=== PATIENT | male | born 1955 | race Caucasian/White ===

== ENCOUNTER 2023-02-04 09:48 | Outpatient (CLI) | payer MEDICARE, BC, SELFPAY | END 2023-02-04 09:49 | disposition home or self-care (01) | PROVIDERS: PCP Family Medicine; Visit Provider Family Medicine | DX: I10 Essential (primary) hypertension (principal); E78.5 Hyperlipidemia, unspecified; Z12.5 Encounter for screening for malignant neoplasm of prostate; Z13.0 Encounter for screening for diseases of the blood and blood-forming organs and certain disorders involving the immune mechanism | CPT/HCPCS: 80048; 80061; 84153 ==

== ENCOUNTER 2024-03-23 08:26 | Outpatient (CLI) | payer MEDICARE, BC, SELFPAY | END 2024-03-23 08:27 | disposition home or self-care (01) | PROVIDERS: PCP Family Medicine; Visit Provider Family Medicine | DX: I10 Essential (primary) hypertension (principal); E78.5 Hyperlipidemia, unspecified; R35.1 Nocturia; R05.9 Cough, unspecified; Z12.5 Encounter for screening for malignant neoplasm of prostate | CPT/HCPCS: 80048; 80061; G0103 ==

== ENCOUNTER 2025-04-24 09:54 | Outpatient (CLI) | payer MEDICARE, BC, SELFPAY | END 2025-04-24 09:55 | disposition home or self-care (01) | PROVIDERS: PCP Family Medicine; Visit Provider Family Medicine | DX: Z12.5 Encounter for screening for malignant neoplasm of prostate (principal); I10 Essential (primary) hypertension; R53.83 Other fatigue; E78.00 Pure hypercholesterolemia, unspecified; Z13.21 Encounter for screening for nutritional disorder | CPT/HCPCS: 80048; 80061; 82607; 84443; G0103 ==

== ENCOUNTER 2025-07-01 21:46 | Emergency (ER) | payer MEDICARE, BC, SELFPAY ==
--- OUTSIDE RECORDS SUMMARY | 2025-07-01 21:48 | XMS_ITS | Clinical Summary ---
Author Organization [employer] [facility] Address [address] [place] [id number] Care Team Providers Care Tax Lawyer Name Role Phone Clinic, No Pcp Or Primary Care Provider Unavaila ble Allergies No known active allergies Medications albuterol HFA (PRO-AIR; VENTOLIN; PROVENTIL) 90 mcg/actuation inhaler 02/04/2023 Active atorvastatin (LIPITOR) 40 mg tablet 03/16/2023 Active chlorthalidone (HYGROTON) 25 mg tablet 03/16/2023 Active Social History Tobacco Use Types Packs/Day Years Used Date Smoking Tobacco: Never Assessed Sex and Gender Information Value Date Recorded Sex Assigned at Not on file 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 Gender Identity Not on file Sexual Orientation Not on file Plan of Treatment Upcoming Encounters Date Type Department Care Team (Late st Contact Info) Description 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 Orders Only [facility] & [address] [address] Health Maintenance Due Date Last Done Comments Tetanus booster 1964 Depression screening for age 12+ 1965 BMI (ht and wt on same day) for age 18+ 1971 Hepatitis C screening for age 18-79 1971 Colonoscopy through age 75 1998 Lipids for age 45-75 1998 Pneumococcal series for age 50+ (1 of 1 - PCV) 2003 Zoster (shingles) series for age 50+ (1 of 2) 2003 Medicare Wellness for age 65+ 2018 COVID-19 vaccine series (2024- season) 2025 07/29/2023, 04/08/2023, 03/20/2022, Additional history exists Influenza Vaccine (#1) 2025 RSV vaccine for adults or (1 - 1-dose 75+ series) 2028 Hepatitis B series for 19+ Aged Out N o longer eligible based on patient's age to complete this topic Insurance [facility] EMP MEDICARE PB ONLY MEDICARE PART B HB ONLY MEDICARE PART A HB ONLY Care Teams Tax Lawyer Relationship Specialty Start Date End Date Clinic, No Pcp Or . PCP - General 02/15/21
[2025-07-01 21:50] VITALS: BP 142/113; PULSE 170; RESP 24; TEMP 36.1; O2SAT 92; BMI 27.9
--- NOTE | 2025-07-01 22:16 | ED.CHESTPAIN ---
HPI - Chest Pain General Chief Complaint: Chest Pain Stated Complaint: chest pain Time Seen by Provider: 07/01/25 21:54 History of Present Illness HPI narrative: This 70-year-old male comes in with chest pain and palpitations or rapid heart rate. He states symptoms began about an hour prior to arrival. He does not report any nausea, vomiting, or diaphoresis. He does have some associated lightheadedness and shortness of breath. He states that he has been having shortness of breath over the past few months since having at upper respiratory infection. He did go to his primary physician who is thinking that it was related to his lungs. He did have an EKG and is set up for a treadmill stress test to occur next week. The patient comes in here with these new symptoms. He arrives showing some sign of significant discomfort that he attributes to chest pain. He is not diaphoretic. Initial assessment shows tachycardia likely due to atrial fibrillation. Related Data Home Medications ?Medication ?Instructions ?Recorded ?Confirmed B-complex with vitamin C 1 cap PO QDAY 06/03/22 06/14/25 calcium 600 mg (as 1 tab PO DAILY 06/03/22 06/14/25 carbonate)-vitamin D3 20 mcg (800 unit) tablet cholecalciferol (vitamin D3) 25 1,000 unit PO DAILY 06/03/22 06/14/25 mcg (1,000 unit) capsule multivitamin 1 tab PO QDAY 06/03/22 06/14/25 omega 6-sdc-xci-fish oil 1,000 mg 1 cap PO QDAY 06/03/22 06/14/25 (120 mg-180 mg) capsule (Fish Oil) aspirin 81 mg tablet,delayed 81 mg PO QDAY 06/04/22 06/14/25 release Previous Rx's ?Medication ?Instructions ?Recorded atorvastatin 40 mg tablet 40 mg PO QPM #90 tabs 04/05/25 chlorthalidone 25 mg tablet 12.5 mg (1/2 x 25 mg) PO DAILY #45 04/05/25 tabs albuterol sulfate 90 mcg/actuation 2 puff inhalation Q6H PRN 04/10/25 aerosol inhaler shortness of breath or wheezing #8.5 grams Allergies Allergy/AdvReac Type Severity Reaction Status Date / Time No Known Drug Allergies Allergy Verified 06/14/25 14:28 Review of Systems Status of ROS Reports: 10 or more systems reviewed and unremarkable except as noted in History and below Narrative Constitutional: No fevers, no weight gain or loss. Eyes: No discharge. No vision changes. HENT: No congestion, no sore throat, no ear pain. Cardiovascular: Chest discomfort with rapid heart rate. Respiratory: No wheezes, no cough. He reports shortness of breath. Gastrointestinal: No abdominal pain, no vomiting, no diarrhea. Genitourinary: No dysuria, no hematuria. Musculoskeletal: Normal range of motion. Skin: No rashes, no pruritis. Neurological: No dizziness, weakness, sensory change, speech change. Endo/Heme/Allergies: No bruising or bleeding. No polydipsia. Pysch: no suicidality, no anxiety, no insomnia. All other systems reviewed and are negative. 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) ?Z96.641 - Presence of right artificial hip joint (ICD-10) Status post vasectomy ?Z98.52 - Vasectomy status (ICD-10) Status post tonsillectomy and adenoidectomy ?Z90.89 - Acquired absence of other organs (ICD-10) Status post left hip replacement ?Z96.642 - Presence of left artificial hip joint (ICD-10) Status post inguinal hernia repair ?Z98.890 - Other specified postprocedural states (ICD-10) ?Z87.19 - Personal history of other diseases of the digestive system (ICD-10) Social History What is your current living situation?: I presently have a place to live Problems where you live: no known problems In the past 12 months, utilities in danger of being shut off: no In past 12 months, lack of transportation kept you from medical appts, meetings, work, or getting things needed for daily living: no In the past 12 mos, have been you worried that your food would run out before you had money to buy more?: never true In the past 12 mos, the food you bought just didn't last and you didn't have money to buy more?: never true Smoking Status: Never smoker Do you use any of these nicotine containing products: None How often do you have a drink containing alcohol: monthly or less AUDIT-C Alcohol total score: 1 Non-prescribed substance use: denies use How often does anyone, including family, friends and others, physically hurt you: never How often does anyone, including family, friends and others, insult or talk down to you: never How often does anyone, including family, friends and others, threaten you with harm: never How often does anyone, including family, friends and others, scream or curse at you: never Exam Narrative Exam Narrative: Constitutional: Well-developed, well-nourished, no acute distress. HEENT: Normocephalic, atraumatic. Neck: Normal range of motion. Nontender. Supple. Heart: Irregular No murmurs. Tachycardia, rate 140-180 beats per minute. Intact distal pulses. Lungs: Clear to auscultation. No chest discomfort. No wheezes, rhonchi, or rales. Abdomen: Normal bowel sounds. Nontender. No rebound tenderness. Genitalia: Deferred. Back: No midline tenderness. Normal range of motion. Extremities: Normal range of motion. No injury. Skin: Intact. No rash. Warm. No erythema or pallor. Neurologic: No altered sensation. No weakness. Alert and oriented. Psychiatric: No suicidality. No anxiety or depression. No insomnia. Nursing notes and vitals signs are reviewed. Const Vital Signs, click to edit/add: Vital Signs - 24 hr 07/01/25 21:50 07/02/25 00:56 07/02/25 00:57 Temperature 97 F L Pulse Rate 108 H 123 H Pulse Rate [Pulse Oximeter] 170 H Respiratory Rate 24 20 24 Blood Pressure 123/71 99/63 Blood Pressure [Right Upper Arm] 142/113 H Pulse Oximetry 92 98 99 Oxygen Delivery Method Room Air Oxygen Flow Rate 07/02/25 01:00 07/02/25 01:00 07/02/25 01:01 Temperature Pulse Rate 86 86 77 Pulse Rate [Pulse Oximeter] Respiratory Rate 21 20 22 Blood Pressure 96/65 96/65 113/70 Blood Pressure [Right Upper Arm] Pulse Oximetry 93 93 97 Oxygen Delivery Method Oxygen Flow Rate 07/02/25 01:01 07/02/25 01:05 07/02/25 01:06 Temperature Pulse Rate 77 82 81 Pulse Rate [Pulse Oximeter] Respiratory Rate 21 20 19 Blood Pressure 113/70 99/63 101/60 Blood Pressure [Right Upper Arm] Pulse Oximetry 97 97 97 Oxygen Delivery Method Oxygen Flow Rate 07/02/25 01:15 Temperature 97.9 F Pulse Rate Pulse Rate [Pulse Oximeter] Respiratory Rate Blood Pressure Blood Pressure [Right Upper Arm] Pulse Oximetry 97 Oxygen Delivery Method Nasal Cannula Oxygen Flow Rate 2 Course Vital Signs Vital signs: Initial Vital Signs Temperature 97 F L 07/01/25 21:50 Temperature Source Temporal Artery Scan 07/01/25 21:50 Pulse Rate 170 H 07/01/25 21:50 Respiratory Rate 24 07/01/25 21:50 Blood Pressure 142/113 H 07/01/25 21:50 Blood Pressure Mean 122 H 07/01/25 21:50 Blood Pressure Position Semi-Fowlers 07/01/25 21:50 Pulse Oximetry 92 07/01/25 21:50 Oxygen Delivery Method Room Air 07/01/25 21:50 Vital Signs Temperature 97 F L 07/01/25 21:50 Pulse Rate 170 H 07/01/25 21:50 Respiratory Rate 24 07/01/25 21:50 Blood Pressure 142/113 H 07/01/25 21:50 Pulse Oximetry 92 07/01/25 21:50 Oxygen Delivery Method Room Air 07/01/25 21:50 Temperature 97.9 F 07/02/25 01:15 Pulse Rate 81 07/02/25 01:06 Respiratory Rate 19 07/02/25 01:06 Blood Pressure 101/60 07/02/25 01:06 Pulse Oximetry 97 07/02/25 01:15 Oxygen Delivery Method Nasal Cannula 07/02/25 01:15 Oxygen Flow Rate 2 07/02/25 01:15 Medications Administered Medications: Discontinued Medications Generic Name Dose Route Start Last Admin Trade Name Freq PRN Reason Stop Dose Admin Apixaban 10 mg 07/01/25 22:15 07/02/25 00:03 Apixaban 5 Mg Tablet PO 07/01/25 22:16 10 mg ONCE ONE Administration Diltiazem HCl 20 mg 07/01/25 22:15 07/01/25 23:22 Diltiazem 5 Mg/Ml Inj IVP 07/01/25 22:16 20 mg ONCE ONE Administration Sodium Chloride 1,000 mls @ 1,000 mls/hr 07/01/25 22:15 07/01/25 23:36 0.9 % Sodium Chloride 1000 Ml IV 07/01/25 23:14 Infused .Q1H [place] Infusion Sodium Chloride 500 mls @ 500 mls/hr 07/01/25 23:29 07/01/25 23:36 0.9 % Sodium Chloride 500 Ml IV 07/02/25 00:28 500 mls/hr .Q1H ONE Administration Propofol 200 mg 07/01/25 23:24 07/02/25 01:16 Propofol 10 Mg/Ml Inj IVP 07/01/25 23:25 70 mg ONCE ONE Administration MDM - Chest Pain MDM Narrative Medical decision making narrative: This patient comes in in rapid atrial fibrillation with new onset occurring about an hour prior to arrival. The an IV was established where he received 20 mg of diltiazem and this brought control the rate but he continues in atrial fibrillation. He is otherwise asymptomatic. Labs are acquired and these returned with reassuring results. In particular his troponin returns in normal range. I did discuss options going forward including synchronized cardioversion. The patient was explained the risks and the benefits of this procedure and agrees to have this done. Dr. Dowd assisted in this procedure. Informed consent was acquired. The patient received 70 mg of propofol administered by Dr. Dowd for adequate sedation. Synchronized cardioversion was performed at 150 joules of energy and this brought him back to normal sinus rhythm. He tolerated this procedure well. He did benefit from some jaw thrust and nasal cannula oxygen. He recovered normally and awoke without report of any symptoms. I did prescribe a course of Eliquis for the next month. This patient has a follow-up plan for a stress echocardiogram in 3 days and should be able to continue with that plan. Lab Data Labs: Lab Results 07/01/25 Range/Units 00:40 WBC 8.93 (4.50-11.00) K/uL RBC 4.91 (4.30-5.90) m/uL Hgb 15.1 (13.5-17.5) gm/dL Hct 42.4 (37.0-53.0) % MCV 86 (80-100) fL MCH 31 (26-34) pg MCHC 36 (32-36) gm/dL RDW Coeff of Leora 11.9 (11.5-15.5) % Plt Count 216 (140-440) K/uL Neut % (Auto) 72.4 H (42.0-72.0) % Lymph % (Auto) 18.5 L (20-44) % [place] % (Auto) 7.6 (0.0-11.0) % Eos % (Auto) 1.0 (0.0-7.0) % Baso % (Auto) 0.4 (0.0-3.0) % Neut # (Auto) 6.50 (1.7-7.0) K/uL Lymph # (Auto) 1.70 (0.90-2.90) K/uL [place] # (Auto) 0.70 (0.00-0.90) K/UL Eos # (Auto) 0.09 (0.00-0.50) K/uL Baso # (Auto) 0.04 (0.00-0.30) K/uL Abs Immat Gran (auto) 0.01 (0.00-0.30) K/uL Imm/Tot Granulo (auto) 0.1 % Sodium 136 (135-149) mmol/L Potassium 2.8 L* (3.6-5.1) mmol/L Chloride 102 (96-114) mmol/L Carbon Dioxide 26 (20-32) mmol/L Anion Gap 8 (7-15) mEq/L BUN 26 (7-30) mg/dL Creatinine 1.1 (0.5-1.5) mg/dL Estimated Creat Clear 64.65 Estimated GFR 71 ml/min Glucose 107 (60-115) mg/dL Calcium 8.2 L (8.4-10.6) mg/dL Magnesium 1.9 (1.5-2.6) mg/dL ECG Data Attestation: I personally reviewed and interpreted this ECG as follows: Interpretation: EKG shows atrial fibrillation with rapid ventricular response, rate 185 beats per minute. There is inferior and in anterior lateral ST abnormalities. Repeat EKG after diltiazem 20 mg shows atrial fibrillation and a rate of 93 beats per minute. There are no specific ST or T-wave abnormalities. EKG after cardioversion shows normal sinus rhythm with a rate of 80 beats per minute. There are no ST or T-wave abnormalities. Critical Care Time Critical Care Time Critical Care Time: Yes Attestation: The patient required my highest level preparedness to intervene emergently and I personally spent this critical care time directly and personally managing the patient. This critical care time included: Obtaining a history; Examining the patient; Pulse oximetry; Ordering and reviewing of studies; Arranging urgent treatment with development of a management plan; Evaluation of patients response to treatment; Frequent reassessment discussions with other providers. This critical care time was performed to assess and manage the high probability of imminent life-threatening deterioration that could result in multiorgan failure. It was exclusive of separate billable procedures and treating other patients and teaching time. Total Critical Care Time in Minutes: 30 Discharge Plan Discharge Clinical Impression: Atrial fibrillation with rapid ventricular response Patient Disposition: Home w/ Parent or Adult Condition: Improved Additional Instructions: Take Eliquis as prescribed. Follow-up with stress echocardiogram as scheduled and also with your primary physician. Return if symptoms are recurrent or worsening. Prescriptions: No Action calcium carbonate-vitamin D3 600 mg-20 mcg (800 unit) tablet 1 tab PO DAILY cholecalciferol (vitamin D3) 25 mcg (1,000 unit) capsule 1,000 unit PO DAILY multivitamin Tablet 1 tab PO QDAY omega 1-vvo-pox-fish oil [Fish Oil] 1,000 mg (120 mg-180 mg) capsule 1 cap PO QDAY B-complex with vitamin C Capsule 1 cap PO QDAY aspirin 81 mg tablet,delayed release (DR/EC) 81 mg PO QDAY chlorthalidone 25 mg tablet 12.5 mg PO DAILY Qty: 45 3RF atorvastatin 40 mg tablet 40 mg PO QPM Qty: 90 3RF albuterol sulfate 90 mcg/actuation HFA aerosol inhaler 2 puff inhalation Q6H PRN (Reason: shortness of breath or wheezing) Qty: 8.5 3RF Follow Up/Referrals: Nils Ordoñez MD [Primary Care Provider, Family Practice] Stand Alone Forms: [employer] Info Instructions
[2025-07-01] MEDS: dilTIAZem 5 MG/ML inj 20 MG IVP (23:22)
[2025-07-01] MEDS: 0.9 % SODIUM CHLORIDE 500 ML 500 ML IV (23:36)
[2025-07-02] VITALS (15 sets, daily range): BP systolic 96–123; BP diastolic 60–71; PULSE 75–123; RESP 17–25; TEMP 36.6; O2SAT 93–99
[2025-07-02] MEDS: APIXABAN 5 MG TABLET 10 MG PO (00:03)
[2025-07-02 00:50] LABS: Hematocrit* 42.4 % (37.0-53.0); Hemoglobin* 15.1 gm/dL (13.5-17.5); Immature Granulocytes Abs Auto 0.01 K/uL (0.00-0.30); Immature Granulocytes Pct Auto 0.1 %; Mean Corpuscular HGB Conc 36 gm/dL (32-36); Mean Corpuscular Hemoglobin 31 pg (26-34); Mean Corpuscular Volume 86 fL (80-100); RDW Coefficient of Variation % 11.9 % (11.5-15.5); Red Blood Count* 4.91 m/uL (4.30-5.90); White Blood Count* 8.93 K/uL (4.50-11.00)
[2025-07-02 00:54] LABS: Lymphocytes Absolute Auto 1.70 K/uL (0.90-2.90); Slide Review Reflex No
[2025-07-02 01:03] LABS: Chloride* 102 mmol/L (96-114); Sodium* 136 mmol/L (135-149)
[2025-07-02 01:06] LABS: Blood Urea Nitrogen* 26 mg/dL (7-30); Creatinine* 1.1 mg/dL (0.5-1.5); Est. Creatinine Clearance* 64.65; Estimated Glomerular Filt Rate 71 ml/min
[2025-07-02 01:07] LABS: Calcium* 8.2 mg/dL (8.4-10.6); Carbon Dioxide* 26 mmol/L (20-32); Glucose* 107 mg/dL (60-115)
[2025-07-02 01:09] LABS: Anion Gap 8 mEq/L (7-15); Potassium* 2.8 mmol/L (3.6-5.1)
--- NOTE | 2025-07-02 01:10 | PC.NURSE ---
Critical potassium called from lab. aware.
[2025-07-02] MEDS: PROPOFOL 10 MG/ML INJ 200 MG IVP (01:16)
[2025-07-02] MEDS: POTASSIUM CHLORIDE 10 MEQ CAPSULE ER 40 MEQ PO (01:37)
== END 2025-07-02 01:54 | disposition home or self-care (01) ==
PROVIDERS: Emergency Provider Emergency Medicine Emergency Medical Services; PCP Family Medicine
DX: I48.20 Chronic atrial fibrillation, unspecified (principal)
CPT/HCPCS: 36415; 80048; 83735; 84484; 85025; 92960; 93005; 96360; 96361; 99285; 99291; A9270; J2704; J7030

== ENCOUNTER 2025-07-04 12:36 | Outpatient (CLI) | payer MEDICARE, BC, SELFPAY ==
[2025-07-04] MEDS: PERFLUTREN LIPID MICROSPHERES 2 ML VIAL IVP (13:11)
[2025-07-04 13:45] VITALS: BP 164/78; PULSE 64; RESP 16; O2SAT 98
--- NOTE | 2025-07-04 13:46 | W.PM.STED ---
Stress Test Note Date Date of test: 07/04/25 Providers Primary care provider: Nils Ordoñez Stress test physician: Stephan Serrano Stress Test Note Stress test ordered: Stress Echo Indication for test: Dyspnea Stress test medicine: Definity Results discussion: This very nice patient presents for the above test, after discussion the risks benefits and side effects of the test, patient would like to continue. Cardiac stress test medical history form is reviewed entirely. Pretest EKG shows normal sinus rhythm, ventricular rate 64 blood pressure 146/82. There is some mild ST wave irregularities, standard King protocol is employed over a time course of 9 minutes metabolic equivalent 10.5 Mets, maximum heart rate of 153, test is terminated because of fulfillment of protocol, he did not develop any symptoms at all. Review of the tracing did not show any significant ST wave changes suggestive of ischemia. There were no dysrhythmias. Exercise tolerance is felt to be good. Impression: Negative electrographic portion of stress echo, subjectively negative Follow up suggested: Await echo imaging results will be reviewed by Cardiology, clinical correlation with these will be needed, patient left this testing facility in good condition.
== END 2025-07-04 12:37 | disposition home or self-care (01) ==
LOC: STRESS 12:37
PROVIDERS: PCP Family Medicine; Visit Provider Family Medicine
DX: R06.09 Other forms of dyspnea (principal)
CPT/HCPCS: 93016; 93325; 93351; Q9957

== ENCOUNTER 2025-07-07 14:59 | Outpatient (CLI) | payer MEDICARE, BC, SELFPAY | END 2025-07-07 15:00 | disposition home or self-care (01) | LOC: LKVREF 15:00 | PROVIDERS: PCP Family Medicine; Visit Provider Family Medicine | DX: I10 Essential (primary) hypertension (principal) | CPT/HCPCS: 80048 ==

== ENCOUNTER 2025-07-24 09:17 | Outpatient (CLI) | payer MEDICARE, BC, SELFPAY ==
--- NOTE | 2025-07-24 10:00 | CRLHL7_ITS ---
For Patients: As a result of the Century Cures Act, medical imaging exams and procedure reports are released immediately into your electronic medical record. You may view this report before your referring provider. If you have questions, please contact your health care provider. INDICATION: Hypokalemia. Left inguinal pain. Evaluate for hernia, adrenal nodule. TECHNIQUE: CT abdomen and pelvis without contrast. COMPARISON: None available. FINDINGS: Evaluation of solid organs is limited secondary to lack of IV contrast administration. Liver: No suspicious focal hepatic lesion. Gallbladder and bile ducts: Unremarkable. Pancreas: Unremarkable. Spleen: Punctate calcified granulomas. Adrenal glands: Unremarkable. No adrenal nodule identified. Kidneys: No renal calculi or hydronephrosis bilaterally. Too small to characterize hypodense right renal lesions. Retroperitoneum: No lymphadenopathy. Bowel and mesentery: Bowel is not obstructed. No significant ascites. Scattered colonic diverticulosis, without evidence of acute diverticulitis. Normal appendix. Bladder: Suboptimally evaluated secondary to streak artifact, no gross abnormalities. Reproductive organs: Suboptimally evaluated secondary to streak artifact, no significant prostatomegaly. Pelvic lymph nodes: No definite lymphadenopathy. Vessels: Atherosclerotic calcifications. Abdominal wall: Small fat filled umbilical hernia. Small left inguinal hernia contains a short segment of proximal sigmoid colon, no evidence of obstruction at this time. Bones: Multilevel degenerative changes of the spine. No suspicious/aggressive focal osseous lesion. Bilateral hip arthroplasties. Lower chest: No focal consolidation. IMPRESSION: 1. Small left inguinal hernia contains a short segment of proximal sigmoid colon. No evidence of bowel obstruction at this time. 2. No adrenal nodule identified. Please note that all CT scans at this facility use dose modulation, iterative reconstruction, and/or weight-based dosing when appropriate to reduce radiation dose to as low as reasonably achievable. Dictated by Mayte Dhaliwal MD @ 07/25/2025 8:29:56 PM (Electronically Signed)
== END 2025-07-24 09:18 | disposition home or self-care (01) ==
LOC: CT 09:18
PROVIDERS: PCP Family Medicine; Visit Provider Family Medicine
DX: K40.90 Unilateral inguinal hernia, without obstruction or gangrene, not specified as recurrent (principal); E87.6 Hypokalemia; R10.9 Unspecified abdominal pain
CPT/HCPCS: 74176